=== PATIENT | female | born 1995 | race Caucasian/White ===

== ENCOUNTER 2019-05-28 22:34 | Emergency (ER) | payer SELFPAY ==
[2019-05-28 22:34] VITALS: BP 131/82; PULSE 70; RESP 16; TEMP 36.5; O2SAT 96; BMI 36.2
--- NOTE | 2019-05-28 22:48 | CT_ITS ---
STUDY: CT BRAIN WITHOUT CONTRAST REASON FOR EXAM: Female, 24 years old. DIZZINESS,LT EAR PAIN,NAUSEA AND VOMITING SINCE THIS AM RADIATION DOSAGE (If Supplied By Facility): CTDIvol = ( 44.99 ) mGy, DLP = ( 796.11 ) mGycm TECHNIQUE: Transaxial CT imaging of the brain was performed without administration of intravenous contrast material. Individualized dose optimization techniques were used for this CT. COMPARISON: No relevant priors. FINDINGS: Normal soft tissue structures. Normal calvarium. Normal size ventricles and extra-axial spaces for the patient''s age. Normal white matter tracts of the cerebral hemispheres. Normal basal ganglia and thalami. Normal brainstem. Normal cerebellum. There is no intracranial hemorrhage. There are no findings of an acute ischemic infarction. Normal visualized paranasal sinuses. CT/Brain/Head without Contrast IMPRESSION: Normal unenhanced CT scan of the brain. Electronically Signed: Wander Sierra DO at 23:44 EDT Tel [phone], Service support ,
--- NOTE | 2019-05-28 22:50 | ED.DCSUM_ITS ---
- ER Visit Summary Date of Service: 05/28/19 Chief Complaint: [Dizziness] History of Present Illness: The patient is a 24 F [presents the emergency department with complaint of dizziness that started this morning when she woke up. Patient states that she try to stand up and fell into a wall. Patient describes spinning around and round sensation. Patient also had left ear pain when she woke up. She denies recent illness. She denies fever or cough. She does describe a headache that is mild. Patient does describe nausea but no vomiting. Denies abdominal pain. She denies urinary symptoms. She does not think that she is . He is never had vertigo before. Ears.] Physical Examination: [HEENT-PERRLA, EOMI. Cranial nerves II through XII grossly intact. TMs clear. Mucous membranes moist. No adenopathy. Cardiovascular-regular rate and rhythm without murmur or ectopy Lungs-clear to auscultation, chest wall stable without crepitus or subcu emphysema Abdomen-normoactive bowel sounds, soft, nontender, no rebound or rigidity, no peritoneal signs. Neuro mlwu-fmeqqp-ce-nose and heel molina testing within normal limits, negative Romberg, negative , Fundi benign. Hallpike maneuver performed and no nystagmus was able to be elicited. Extremities-intact ?4, normal range of motion, normal pulses, atraumatic] Test Results: [Orthostatic vital signs were negative. CBC with it was normal. Chemistries unremarkable. hCG was negative. Urinalysis normal. CT scan of the brain without contrast was normal.] Emergency Department Course and Treatment: [She received Zofran 4 mg p.o. as well as Ativan 1 mg p.o. and her symptoms resolved] Treatment Plan: [We will be given a prescription for Zofran and Ativan as needed. I suspect likely symptoms related to a benign positional vertigo. Patient will be given referral to primary care physician for follow-up in 3 to 5 days.] Disposition: [Discharged home in stable condition] Impression: [Benign positional vertigo] This note was generated with [employer] software. It may contain incorrect words, spelling, and punctuation that were not noted in review of the chart prior to signing ED Disposition - Plan for ED Patient: Referrals: NOT,DEFINED [NON-STAFF] -
[2019-05-28 23:00] LABS: Bacteria 0 SEEN /hpf (None Seen); Mucous, Urine 0 SEEN /hpf (<or=2+); Red Blood Cells-Urine 0 SEEN /hpf (0-5)
[2019-05-28 23:04] LABS: Color, Urine Yellow (Yellow); Glucose, Dipstick Normal (Normal); Ketone-Dipstick Negative (Negative); Leukocyte Esterase-Dipstick Negative /ul (Negative); Nitrite-Dipstick Negative (Negative); Occult Blood-Urine Negative /ul (Negative); Protein-Dipstick Negative (Negative); Urine Bilirubin Dipstick Negative (Negative); Urine Clarity Clear (Clear); Urine Urobilinogen Normal (Normal); Urine pH 6.5 (5.0 - 8.0)
[2019-05-28 23:14] VITALS: BP 116/74; BP 118/69; BP 120/84; PULSE 68; PULSE 70; PULSE 77
[2019-05-28 23:23] LABS: Absolute Lymphocyte Count 3.83 X10^3/uL (0.83-4.51); Absolute Neutrophil Count 4.5 X10^3/uL (2.0-7.7); Basophil# 0.06 X10^3/uL; Basophil% 0.6 % (0-1); Eosinophils% 2.2 % (0-5); Hematocrit 40.7 % (37-47); Hemoglobin 13.2 g/dL (12.0-15.0); Lymphocyte # 3.83 X10^3/ul (4.0); Lymphocyte % 41.5 % (19-41); Mean Corp Hgb Conc 32.4 g/dL (32-36); Mean Corpuscular Volume 83.2 fL (81-99); Mean Platelet Vol. 10.3 fl (6.2-12.0); Monocyte# 0.56 X10^3/uL; Monocyte% 6.1 % (0-10); NRBC Flagged by Analyzer 0 % (0-5); Neutrophil # 4.53 X10^3/uL (2.7-7.7); Platelet Count 264 K/mm3 (150-450); RBC Distribution Width CV 13.1 % (11.6-14.6); RBC Distribution Width SD 39.5 fl (35.1-43.9); Red Blood Count 4.89 M/mm3 (4.2-5.4); White Blood Count 9.2 K/mm3 (4.4-11.0)
[2019-05-28 23:30] LABS: Amorphous Sediment 1+; Squamous Epithelial Cells - UA 0-5 SEEN /hpf (5-10); White Blood Cells 0-5 SEEN /hpf (0-5)
[2019-05-28 23:31] LABS: Internal QC Validated? YES +Cl - CLEAR BKGD; Pregnancy, Serum, hCG Quali. NEGATIVE Negative
[2019-05-28] MEDS: Ondansetron ODT 4 MG Tablet PO (23:32)
[2019-05-28] MEDS: LORazepam 1 MG Tablet PO (23:32)
[2019-05-28 23:49] LABS: Anion Gap 5 (5-15); BUN 10 mg/dL (7-18); BUN/Creat Ratio 15.1 RATIO (10-20); Chloride 109 mmol/L (98-107); Creatinine, Serum 0.66 mg/dL (0.55-1.02); EST Glomerular Filtration Rate 117 mL/min (>60); Est Glom Filt Rate - Afr Amer 141 mL/min (>60); Estimated Creatinine Clearance 152.98 ml/min; Glucose 99 mg/dL (74-106); Potassium 4.6 mmol/L (3.5-5.1); Sodium Level 140 mmol/L (136-145)
--- NOTE | 2019-05-28 23:56 | ED.DEP ---
ED Disposition - Plan for ED Patient: Instructions: ED BPV Vertigo Prescriptions: Lorazepam [Ativan] 1 mg PO TID PRN #10 tab PRN Reason: Vertigo Prescription Printed Ondansetron [Zofran Odt] 4 mg PO Q8H PRN PRN #10 tab PRN Reason: Nausea Prescription Printed Referrals: NOT,DEFINED [NON-STAFF] - Robby Lala MD [STAFF PHYSICIAN] - 3-5 Days
[2019-05-29 00:01] VITALS: BP 114/71; PULSE 70; RESP 18; O2SAT 95
== END 2019-05-29 00:02 | disposition home or self-care (01) ==
LOC: ED 23:44
PROVIDERS: Emergency Provider Emergency Medicine
DX: H81.10 Benign paroxysmal vertigo, unspecified ear (principal); H92.02 Otalgia, left ear; R51 Headache
CPT/HCPCS: 70450; 80048; 81001; 84703; 85025; 99285; J7030; A4216; J2405

== ENCOUNTER → 2019-06-04 12:02 | Outpatient (CLI) | payer SELFPAY ==
[2019-05-28 22:34] VITALS: BMI 36.2
[2019-06-04 14:54] LABS: Anion Gap 6 (5-15); BUN 9 mg/dL (7-18); BUN/Creat Ratio 13.2 RATIO (10-20); Chloride 105 mmol/L (98-107); Creatinine, Serum 0.68 mg/dL (0.55-1.02); EST Glomerular Filtration Rate 113 mL/min (>60); Est Glom Filt Rate - Afr Amer 137 mL/min (>60); Glucose 94 mg/dL (74-106); Potassium 3.8 mmol/L (3.5-5.1); Sodium Level 137 mmol/L (136-145)
== END ==
LOC: MTLAB 12:04
PROVIDERS: PCP Family Medicine; Referring Provider Family Medicine; Visit Provider Family Medicine
DX: E87.5 Hyperkalemia (principal)
CPT/HCPCS: 36415; 80048

== ENCOUNTER 2019-07-14 22:00 | Emergency (ER) | payer SELFPAY ==
[2019-07-14 22:02] VITALS: BP 134/89; PULSE 71; RESP 15; TEMP 36.5; O2SAT 97; BMI 35.4
[2019-07-14 22:14] VITALS: O2SAT 98
--- NOTE | 2019-07-14 22:40 | EKG12_ITS ---
Test Reason : CP Blood Pressure : / mmHG Vent. Rate : 072 BPM Atrial Rate : 072 BPM P-R Int : 172 ms QRS Dur : 086 ms QT Int : 384 ms P-R-T Axes : 050 012 037 degrees QTc Int : 420 ms Normal sinus rhythm with sinus arrhythmia Anterior infarct , age undetermined Abnormal ECG Confirmed by ILAN REYES, KG ([id number]), desk editor LIEN WHYTE ([id number]) on 07/16/2019 1:29:20 PM Referred By: JAQUELINE Confirmed By:KG TALAVERA MD
--- NOTE | 2019-07-14 22:44 | ED.RN ---
NO OLD EKGS IN [place]
--- NOTE | 2019-07-14 22:44 | ED.VIS.GEN ---
History of Present Illness Chief Complaint: Shortness of Breath Informant: Patient Narrative: Patient stated she had gradual onset of shortness of breath and chest pain and feeling vertigo approximately 2 hours ago. She had a mild frontal headache. No home treatment. She does not have gas in her house. They have electric heating. She denies carbon monoxide exposure Significant other felt lightheaded as well. Current severity is mild. She does have a history of anxiety. Denies any medical problems other than vertigo. Seen last month for vertigo with a negative work-up putting lab work and CT head. Denies any cough coronavirus symptoms. Past Medical History - Allergies and Home Meds Allergies/Adverse Reactions: Allergies diphenhydramine [From Benadryl] Allergy (Verified 07/14/19 22:05) Swelling loratadine [From Claritin] Allergy (Verified 07/14/19 22:05) Angioedema mushroom Allergy (Verified 07/14/19 22:05) Angioedema aspirin Adverse Reaction (Verified 07/14/19 22:05) Rash Penicillins Adverse Reaction (Verified 07/14/19 22:05) Rash Primary Care Physician: Jl Rodriguez MD [Primary Care Provider] - Prior records reviewed: Yes Past Medical History: - - Vertigo Surgical History: noncontributory Lives: With Family Smoking Status: Never smoker Alcohol: None Drugs: None Review of Systems General: Denies: Chills, Fever, Sweats Eyes: Denies: Visual changes - bilaterally, Diplopia ENT: Denies: Rhinorrhea, Sore throat Cardiovascular: Reports: Chest pain. Denies: Palpitations Respiratory: Reports: Dyspnea. Denies: Cough, Dyspnea on exertion Gastrointestinal: Denies: Abdominal pain, Nausea, Vomiting, Diarrhea, Melena, Hematochezia Genitourinary: Denies: Dysuria, Hematuria, Frequency Musculoskeletal: Denies: Back pain, Extremity Pain Skin: Denies: Rash, Wounds Neurological: Reports: Headache. Denies: Weakness, Numbness Physical Exam Vital Signs/Narrative: Vital Signs Temp Pulse Resp BP Pulse Ox 07/14/19 22:02 97.7 F L 71 15 134/89 H 97 General: Well nourished, Well developed, No Acute Distress Head: Normocephalic, Atraumatic Eyes: Perrl, EOMI ENT: Moist mucous membranes, No rhinorrhea Neck: Supple, Nontender Cardiovascular: Regular rate, Regular rhythm, No murmurs Respiratory: No distress, CTA bilaterally, Chest nontender Abdomen: Soft, Nontender, Nondistended, Normal bowel sounds Back: Nontender, Normal Inspection Extremities: Nontender, No edema Skin: Normal color, No rash Neurological: Alert, Oriented x3, Cranial nerves II-XII grossly intact, Normal Strength, Normal Sensation Psychological: Normal affect, Normal Mood Diagnostic/Tx/Re-eval - Medical Decision Making EKG shows sinus rhythm with a rate of 72 with sinus arrhythmia. Positive motion artifact noted. No acute ischemia. Lab work chest x-ray obtained. Chest x-ray normal. Lab work essentially unremarkable including CBC BMP except for a potassium mildly low at 3.4. Troponin negative. Carboxyhemoglobin normal. At this time I do not feel the patient has an acute emergent cause of her symptoms. I feel she can follow-up as an outpatient. She has normal vital signs and is stable. ED Disposition - Plan for ED Patient: Disposition: Home or Assisted Living Diagnosis: Shortness of breath, Chest pain at rest Instructions: ED Chest Pain NonCardiac, ED Dyspnea Referrals: Jl Rodriguez MD [Primary Care Provider] -
--- NOTE | 2019-07-14 22:55 | RAD_ITS ---
STUDY: X-RAY CHEST REASON FOR EXAM: Female, 24 years old. Shortness of breath, dizziness. TECHNIQUE: AP portable chest. COMPARISON: None. FINDINGS: Lungs are hypoinflated. No focal infiltrates or effusions. No pneumothorax. Normal size heart. Normal mediastinum and roxy. Normal visualized pulmonary arteries. Normal visualized aortic arch and descending thoracic aorta. Normal visualized thoracic spine. Normal visualized ribs, clavicles, and shoulders. There is no demonstrated abnormality of the visualized soft tissue structures of the upper abdomen. RAD/Chest 1 View (Portable) IMPRESSION: No acute cardiopulmonary disease. Hypoinflation. Electronically Signed: Long Dahl MD at 23:36 EDT , Service support ,
[2019-07-14 23:09] LABS: Absolute Lymphocyte Count 3.14 X10^3/uL (0.83-4.51); Absolute Neutrophil Count 4.6 X10^3/uL (2.0-7.7); Basophil# 0.04 X10^3/uL; Basophil% 0.5 % (0-1); Eosinophil# 0.16 X10^3/uL; Eosinophils% 1.9 % (0-5); Hematocrit 43.4 % (37-47); Hemoglobin 13.8 g/dL (12.0-15.0); Lymphocyte # 3.14 X10^3/ul (4.0); Lymphocyte % 37.1 % (19-41); Mean Corp Hgb Conc 31.8 g/dL (32-36); Mean Corpuscular Hgb 27.1 pg (27.0-32.0); Mean Corpuscular Volume 85.1 fL (81-99); Mean Platelet Vol. 10.3 fl (6.2-12.0); Monocyte# 0.53 X10^3/uL; Monocyte% 6.3 % (0-10); NRBC Flagged by Analyzer 0 % (0-5); Neutrophil # 4.58 X10^3/uL (2.7-7.7); Platelet Count 306 K/mm3 (150-450); RBC Distribution Width CV 12.9 % (11.6-14.6); RBC Distribution Width SD 40.1 fl (35.1-43.9); White Blood Count 8.5 K/mm3 (4.4-11.0)
[2019-07-14 23:25] LABS: Anion Gap 7 (5-15); BUN 13 mg/dL (7-18); BUN/Creat Ratio 15.7 RATIO (10-20); Calcium,Total 9.4 mg/dL (8.5-10.1); Chloride 106 mmol/L (98-107); Creatinine, Serum 0.83 mg/dL (0.55-1.02); EST Glomerular Filtration Rate 90 mL/min (>60); Est Glom Filt Rate - Afr Amer 109 mL/min (>60); Estimated Creatinine Clearance 121.65 ml/min; Glucose 109 mg/dL (74-106); Potassium 3.4 mmol/L (3.5-5.1); Sodium Level 140 mmol/L (136-145)
[2019-07-14 23:56] LABS: Carboxyhemoglobin Frac (CO) 0.8 % (0.0-1.5)
[2019-07-15 00:05] VITALS: BP 121/87; PULSE 75; RESP 17; O2SAT 98
[2019-07-15 00:10] VITALS: BP 121/87; PULSE 75; RESP 17; O2SAT 98
== END 2019-07-15 00:24 | disposition home or self-care (01) ==
PROVIDERS: Emergency Provider Emergency Medicine; PCP Family Medicine
DX: R06.02 Shortness of breath (principal); R07.9 Chest pain, unspecified; R51 Headache; F41.9 Anxiety disorder, unspecified; Z79.899 Other long term (current) drug therapy; Z88.0 Allergy status to penicillin; Z88.6 Allergy status to analgesic agent; Z88.8 Allergy status to other drugs, medicaments and biological substances
CPT/HCPCS: 71045; 80048; 82375; 84484; 85025; 93005; 99283; A4216

== ENCOUNTER → 2019-10-10 14:10 | Outpatient (CLI) | payer SELFPAY ==
[2019-10-10 18:00] LABS: Thyroid Stim Hormone (TSH) 1.33 uIU/mL (0.358-3.74)
== END ==
PROVIDERS: PCP Family Medicine; Referring Provider Family Medicine; Visit Provider Family Medicine
DX: R63.0 Anorexia (principal)
CPT/HCPCS: 36415; 84443